=== PATIENT | female | born 1960 | race Caucasian/White ===

== ENCOUNTER 2017-01-19 09:54 | Inpatient (IN) | payer OTHER ==
[~2017-01-19] VITALS: Ht 154.9 cm; Wt 81.2 kg
[2017-01-19] MEDS ORDERED: ACETAMINOPHEN 325 MG TABLET PO PRN (13:30)
[2017-01-19] MEDS ORDERED: IBUPROFEN 400 MG TABLET PO PRN (13:30)
[2017-01-19] MEDS ORDERED: MIRALAX 17 GM POWD.PACK PO PRN (13:30)
[2017-01-19] MEDS ORDERED: LOPERAMIDE HCL 2 MG CAPSULE PO PRN ×2 (13:30)
[2017-01-19] MEDS ORDERED: CLONIDINE HCL 0.1 MG TABLET PO PRN (13:30)
[2017-01-19] MEDS ORDERED: MAG HYDROX/AL HYDROX/SIMETH 30 ML LIQUID UDC PO PRN (13:30)
[2017-01-19] MEDS ORDERED: ONDANSETRON 4 MG/2 ML VIAL IM PRN (13:30)
[2017-01-19] MEDS ORDERED: LORAZEPAM 1 MG TABLET PO PRN ×2 (13:30)
[2017-01-19] MEDS ORDERED: ONDANSETRON ODT 4 MG TAB.RAPDIS SL PRN (13:30)
[2017-01-19] MEDS ORDERED: THIAMINE HCL 200 MG/2 ML VIAL IM ONE (13:30)
[2017-01-19] MEDS ORDERED: LORAZEPAM 2 MG/1 ML VIAL IM PRN (13:30)
--- NOTE | 2017-01-19 13:35 | NUR ---
PRE ADMISSION Patient at intake, 57 year old female from [facility]. Here to detox off of alcohol. Patient is alert and oriented x4, speech is slurred. Patient ambulates with steady gait. patient bp: 133/75 heart rate: 84, t: 97.8 r: 16 o2 sat: 98% room air. Patient denies pain/discomfort. Patient reports she is allergic to Keflex. Patient denies any history of seizures. Reports first time in treatment. Reports past medical history of: hypertension and diabetes type 2. Patient was provided with education regarding all unit protocols, with good verbal understanding. Patient to be admitted to [facility]. Will monitor closely.
[2017-01-19] MEDS ORDERED: LISI1TAB13 PO (13:41)
[2017-01-19] MEDS ORDERED: sinex (13:44)
[2017-01-19] MEDS ORDERED: NICOTINE POLACRILEX 4 MG GUM-PK OF TEN BC PRN (13:45)
--- NOTE | 2017-01-19 13:45 | NUR ---
ADMISSION Patient arrived to [facility] detox, patient able to ambulate with steady gait. Body search completed by female DIVIDEND CLERK, no contraband found. Patients body assessment completed noted patient skin intact, no breakdown, bruising or discoloration noted. patient was oriented to unit and to room, educated regarding safety measures and call light teaching with good verbal understanding. Patient is alert and oriented x4, appears intoxicated noted with slurred speech, but able to be understood and make needs known. Patient reports allergies to Keflex. vital signs WNL. patient reports substance use of: 1. etoh- began drinking alcohol at the age of 30 has been drinking on/off patient reports for the past two years has been consuming 12-18 (12oz) beers of either leonard or dos xx on a daily basis. Patient reports last consumed three, 32oz of dos xx and four, 12 oz bottles of leonard. Patient reports this is her first time in detox, denies taking any recreational drugs. patient reports she was diagnosed with hypertension in the year 2004 and diabetes type 2 in the year 2005, reports she saw her primary care physician about one month ago, does not recall the doctors name, but reports the office is in [place] under the name of [facility]. Patient brought home medications, were input into [facility]. Patient denies any history of seizures. Patient reports family history of substance abuse: father "alcoholism". Patient is alert and oriented x4. pupils are equal and reactive to light, speech is slurred, face is flushed. Patients abdomen is soft and non distended, no NVD noted. Patients bowel sounds heard in all quadrants. Patients respirations are even and unlabored, lungs clear upon auscultation. Patient was seen and examined by Dr. Eastman at intake office. psychiatrist notified of new admission. safety measures in place. call light with in reach, will continue to monitor closely. safety measures in place.
[2017-01-19 13:49] VITALS: BP 133/75
[2017-01-19] MEDS ORDERED: ASPI-612 PO (13:49)
[2017-01-19 13:50] LABS: *URINE HCG, QUAL NEGATIVE (NEGATIVE)
[2017-01-19 14:05] LABS: *AMPHETAMINE, URINE NEGATIVE (NEGATIVE); *BARBITURATE, URINE NEGATIVE (NEGATIVE); *CANNABINOID, URINE NEGATIVE (NEGATIVE); *COCCAINE, URINE NEGATIVE (NEGATIVE); *OPIATE, URINE NEGATIVE (NEGATIVE); *PHENCYCLIDINE SCREEN,URINE NEGATIVE (NEGATIVE)
[2017-01-19 14:42] LABS: BASOPHILS % (AUTO) 0.4 % (0.0-2.0); BILIRUBIN,TOTAL 0.8 mg/dL (0.2-1.0); CREATININE 0.8 mg/dL (0.6-1.3); EOSINOPHILS # (AUTO) 0.1 K/uL (0.0-0.7); EOSINOPHILS % (AUTO) 1.1 % (0.0-7.0); HEMATOCRIT 44.2 % (37-47); HEMOGLOBIN 15.3 G/DL (12.0-16.0); LYMPHOCYTES % (AUTO) 39.7 % (20.5-51.5); MAGNESIUM 1.8 mg/dL (1.8-2.4); MEAN CORPUSCULAR HEMOGLOBIN 33.7 UUG (27.0-31.0); MEAN CORPUSCULAR HGB CONC 35 g/dL (32.0-37.0); MEAN CORPUSCULAR VOLUME 97.3 FL (81.0-99.0); MONOCYTES # (AUTO) 0.5 K/UL (0.1-1.30); MONOCYTES % (AUTO) 7.2 % (0.0-11.0); NEUTROPHILS % (AUTO) 51.6 % (38.5-71.5); PLATELET COUNT (AUTO) 226 K/UL (150-450); RED BLOOD CELL COUNT(AUTO) 4.53 MIL/UL (4.2-5.4); TOTAL PROTEIN, SERUM 7.3 g/dL (6.4-8.2); WHITE BLOOD COUNT (AUTO) 7.6 K/UL (4.0-11.2)
[2017-01-19 14:51] LABS: POTASSIUM 2.7 mmol/L (3.5-5.1)
[2017-01-19] MEDS ORDERED: POTASSIUM CHLORIDE 20 MEQ TAB.PRT.SR PO ONE (15:00)
--- NOTE | 2017-01-19 15:00 | NUR ---
MD COMMUNICATION relayed all lab results to Dr. Eastman, including potassium results with new orders for one time order for kdur 40 Meq one time dose for potassium supplement, unable to input orders into [employer], orders were read back and verified with MD. Will administer medication as ordered.
[2017-01-19] MEDS: METFORMIN HCL 500 MG TABLET PO SCH (17:18)
[2017-01-19 17:53] VITALS: BP 99/60
--- NOTE | 2017-01-19 19:15 | NUR ---
START OF SHIFT NOTE : Pt. is 57 years old female ,alert and oriented x4, admitted on 01/19/2017 for ETOH dependency. Vital signs were stable during shift. Patient compliant with therapeutic plan of care. Patient continues under close observation. No s/sx of withdrawal noted, last ciwa score of: 2, pt. complains of anxiety. Patient denies any SI/HI. Encouraged patient to attend group therapies/sessions to learn new coping skills to prevent relapse. Safety measures in place : bed on lowest position with side rails x2 up for safety, call light within reach. Will continue to monitor closely and offer help.
--- NOTE | 2017-01-19 19:26 | NUR ---
END OF SHIFT Patient alert and oriented x4, vital signs were stable during shift. Patient admitted today, patient reports she is very tired and would like to rest, patient in bed throughout shift. Patient compliant with therapeutic plan of care. Patient continues under close observation. No s/sx of withdrawal noted, last ciwa score of: 0. During shift patient received no PRN medications. Patient denies any SI/HI. Encouraged patient to attend group therapies/sessions to learn new coping skills to prevent relapse/ Vital signs were stable during shift. Safety measures in place. Will continue to monitor.
[2017-01-19 20:00] VITALS: BP 137/68
[2017-01-19] MEDS ORDERED: POTASSIUM CHLORIDE 10 MEQ CAPSULE.SA PO ONE (21:00)
--- NOTE | 2017-01-19 21:00 | NUR ---
PRN BENADRYL Pt. complains of increased level of sleeplessness. PRN BENADRYL given as ordered. Safety measures in place : bed on lowest position with side rails x2 up for safety, call light within reach. Will continue to monitor closely and offer help.
[2017-01-19] MEDS: diphenhydrAMINE 50 MG CAPSULE PO PRN (21:50)
--- NOTE | 2017-01-19 22:00 | NUR ---
REASSESSMENT LIZETTE Pt. is sleeping, RR=16, unlabored and even. Safety measures in place : bed on lowest position with side rails x2 up for safety, call light within reach. Will continue to monitor closely and offer help.
[2017-01-20 06:07] LABS: HEPATITIS B SURFACE AG Negative (Negative)
--- NOTE | 2017-01-20 06:36 | NUR ---
END OF SHIFT NOTE : Pt. is 57 years old female ,alert and oriented x4, admitted on 01/19/2017 for ETOH dependency. Vital signs were stable during shift. Patient compliant with therapeutic plan of care. Patient continues under close observation. No s/sx of withdrawal noted, last ciwa score of: 2, pt. complains of anxiety. Patient denies any SI/HI. Encouraged patient to attend group therapies/sessions to learn new coping skills to prevent relapse. Pt remains compliant with the treatment plan. PRN BENADRYL given during my shift. V/S remain WNL. RR=16, even and unlabored, lungs clear upon auscultation, abdomen soft and non- distended. Pt denies nausea, vomiting and diarrhea. LAST CIWA=2 at 0400 , INTAKE= 355 ml, voided x1 , slept 5 hours. Safety measures in place : bed on lowest position with side rails x2 up for safety, call light within reach. Will continue to monitor closely and offer help.
--- NOTE | 2017-01-20 07:56 | NUR ---
BEGINNING OF SHIFT Patient endorsement report received from hourly shift nurse, all pertinent information discussed. Patient with admitting Dx: ETOH dependence. Patient currently with ongoing 5 day Ativan taper as ordered, and is scheduled to begin day 1 of taper, during hourly shift was under close observation no PRN medications were administered for s/sx of withdrawal. patient was administered PRN: Benadryl for sleep, patient slept 6 hours. with last ciwa score of: 2. Fall and seizure precautions observed and in place. safety measures in place. will continue to monitor closely. Patient received in room, alert and oriented x4, educated regarding plan of care for the day and medication regimen with good verbal understanding. Will continue to monitor.
[2017-01-20 08:16] VITALS: BP 137/93
[2017-01-20] MEDS: FOLIC ACID 1 MG TABLET PO SCH (08:53)
[2017-01-20] MEDS: METFORMIN HCL 500 MG TABLET PO SCH ×2 (08:53→17:00)
[2017-01-20] MEDS: THIAMINE HCL 100 MG TABLET PO SCH (08:53)
[2017-01-20] MEDS: MULTIVITAMINS,THERAPEUTIC TABLET PO SCH (08:53)
[2017-01-20] MEDS: LORAZEPAM 1 MG TABLET PO SCH ×4 (08:53→21:42)
[2017-01-20] MEDS: NICOTINE 14 MG/24HR PATCH TD SCH (09:00)
[2017-01-20] MEDS: PATIENT MAY USE OWN MED- MD OK PO SCH (09:00)
[2017-01-20] MEDS ORDERED: TUBERCULIN,PURIF.PROT.DERIV. 5 TU/0.1 ML TEST ID ONE (09:00)
--- NOTE | 2017-01-20 09:31 | NUR ---
Therapist prompted client about group times. Client just admitted yesterday but stated she would attend groups today if she feels well.
[2017-01-20 12:24] VITALS: BP 105/60
[2017-01-20 17:18] VITALS: BP 112/75
--- NOTE | 2017-01-20 18:58 | NUR ---
END OF SHIFT Patient alert and oriented x4, vital signs were stable during shift. Patient with admitting Dx: etoh dependence, started 5 day Ativan taper this morning, patient on day 1 of taper, well tolerated, no ASE noted. Patient compliant with therapeutic plan of care. Patient continues under close observation. 0900 assessment patient presented with: mild nausea, tremors, mild sweating, and anxiety with ciwa score of: 9; 1300 assessment patient presented with: tremors, sweats, and mild anxiety with ciwa score of: 6; 1700 assessment patient presented with: tremors, sweats, and mild anxiety , and head fullness with ciwa score of: 11. Encouraged adequate PO fluid intake as tolerated. Patient reported one episode of soft formed stool during shift. During shift patient received no PRN medications. Patient denies any SI/HI. Encouraged patient to attend group therapies/sessions to learn new coping skills to prevent relapse/ Vital signs were stable during shift. Safety measures in place. Will continue to monitor.
--- NOTE | 2017-01-20 19:15 | NUR ---
START OF SHIFT NOTE : Pt. is 57 years old female ,alert and oriented x4, admitted on 01/19/2017 for ETOH dependency. Vital signs were stable during shift. Patient compliant with therapeutic plan of care. Patient continues under close observation. No s/sx of withdrawal noted, last ciwa score of: 2, pt. complains of tremors, sweats, and mild anxiety , and head fullness. Patient denies any SI/HI. Encouraged patient to attend group therapies/sessions to learn new coping skills to prevent relapse. Safety measures in place : bed on lowest position with side rails x2 up for safety, call light within reach. Will continue to monitor closely and offer help.
[2017-01-20 20:00] VITALS: BP 104/66
[2017-01-20] MEDS: diphenhydrAMINE 50 MG CAPSULE PO PRN (21:41)
--- NOTE | 2017-01-21 06:48 | NUR ---
END OF SHIFT NOTE : Pt. is 57 years old female ,alert and oriented x4, admitted on 01/19/2017 for ETOH dependency. Vital signs were stable during shift. Patient continues under close observation. No s/sx of withdrawal noted, Pt. complains of tremors, sweats, and mild anxiety , and head fullness. Patient denies any SI/HI. Encouraged patient to attend group therapies/sessions to learn new coping skills to prevent relapse. Pt remains compliant with the treatment plan. PRN BENADRYL given during my shift. V/S remain WNL. RR=16, even and unlabored, lungs clear upon auscultation, abdomen soft and non- distended. Pt denies nausea, vomiting and diarrhea. LAST CIWA=6 at 0400 , INTAKE= 1254 ml, voided x3 , slept 9 hours.Safety measures in place : bed on lowest position with side rails x2 up for safety, call light within reach. Will continue to monitor closely and offer help.
--- NOTE | 2017-01-21 07:32 | NUR ---
BEGINNING OF SHIFT Patient endorsement report received from rug sizer nurse, all pertinent information discussed. Patient with admitting Dx: ETOH dependence. Patient currently with ongoing 5 day Ativan taper as ordered, and is scheduled to begin day 2 of taper, patient was administered PRN: Benadryl for sleep, patient slept 9 hours. with last ciwa score of: 6. Fall and seizure precautions observed and in place. safety measures in place. will continue to monitor closely. Patient received in room, alert and oriented x4, educated regarding plan of care for the day and medication regimen with good verbal understanding. Will continue to monitor.
[2017-01-21 07:49] LABS: CREATININE 0.9 mg/dL (0.6-1.3); MAGNESIUM 2.1 mg/dL (1.8-2.4); POTASSIUM 3.6 mmol/L (3.5-5.1)
[2017-01-21 08:31] VITALS: BP 118/74
[2017-01-21] MEDS: PATIENT MAY USE OWN MED- MD OK PO SCH (08:33)
[2017-01-21] MEDS: FOLIC ACID 1 MG TABLET PO SCH (08:33)
[2017-01-21] MEDS: LORAZEPAM 1 MG TABLET PO SCH ×3 (08:33→21:20)
[2017-01-21] MEDS: THIAMINE HCL 100 MG TABLET PO SCH (08:33)
[2017-01-21] MEDS: METFORMIN HCL 500 MG TABLET PO SCH ×2 (08:33→17:11)
[2017-01-21] MEDS: MULTIVITAMINS,THERAPEUTIC TABLET PO SCH (08:33)
[2017-01-21] MEDS: NICOTINE 14 MG/24HR PATCH TD SCH (08:34)
[2017-01-21 13:33] VITALS: BP 138/84
[2017-01-21 16:51] VITALS: BP 118/85
--- NOTE | 2017-01-21 18:58 | NUR ---
END OF SHIFT Patient alert and oriented x4, vital signs were stable during shift. Patient with admitting Dx: etoh dependence, started 5 day Ativan taper this morning, patient on day 2 of taper, well tolerated, no ASE noted. Patient compliant with therapeutic plan of care. Patient continues under close observation. 0900 assessment patient presented with: fine tremors, barely sweating and anxiety with ciwa score of: 5; 1300 assessment patient presented with: fine tremors, barely sweating and anxiety with ciwa score of: 5; 1700 assessment patient presented with: tremors that can be felt but not seen, barely sweating and anxiety with ciwa score of: 4. Detox medication effective at reducing withdrawal symptoms. Encouraged adequate PO fluid intake as tolerated. During shift patient received no PRN medications. Patient denies any SI/HI. Encouraged patient to attend group therapies/sessions to learn new coping skills to prevent relapse/ Vital signs were stable during shift. Safety measures in place. Will continue to monitor.
--- NOTE | 2017-01-21 19:15 | NUR ---
START OF SHIFT NOTE : Pt. is 57 years old female ,alert and oriented x4, admitted on 01/19/2017 for ETOH dependency. Vital signs were stable during shift. Patient compliant with therapeutic plan of care. Patient continues under close observation. Pt. complains of mild anxiety , and head fullness. Patient denies any SI/HI. Encouraged patient to attend group therapies/sessions to learn new coping skills to prevent relapse. Safety measures in place : bed on lowest position with side rails x2 up for safety, call light within reach. Will continue to monitor closely and offer help.
[2017-01-21 20:00] VITALS: BP 141/92
[2017-01-21] MEDS: diphenhydrAMINE 50 MG CAPSULE PO PRN (21:20)
--- NOTE | 2017-01-22 06:56 | NUR ---
END OF SHIFT NOTE : Pt. is 57 years old female ,alert and oriented x4, admitted on 01/19/2017 for ETOH dependency. Vital signs were stable during shift. Patient compliant with therapeutic plan of care. Patient continues under close observation. Pt. complains of mild anxiety , and head fullness. Patient denies any SI/HI. Encouraged patient to attend group therapies/sessions to learn new coping skills to prevent relapse. Pt remains compliant with the treatment plan. PRN BENADRYL given during my shift. V/S remain WNL. RR=16, even and unlabored, lungs clear upon auscultation, abdomen soft and non- distended. Pt denies nausea, vomiting and diarrhea. LAST CIWA=3 at 0400 , SJBGKY=[id number] ml, voided x 1, slept 7 hours. Safety measures in place : bed on lowest position with side rails x2 up for safety, call light within reach. Will continue to monitor closely and offer help.
--- NOTE | 2017-01-22 07:41 | NUR ---
START OF SHIFT NOTE Received patient this morning Aox4. Patient awake and states she feels "okay." Patient continues on 5 day Ativan taper today. PRN Benadryl given per night nurse. She slept 7 hours. CIWA 3 per night nurse. Vital signs stable. Encouraged pt to attend groups and activities and increase fluid intake. Encouraged pt to notify RN if symptoms of withdrawal worsen. Will monitor closely.
[2017-01-22 08:00] VITALS: BP 143/92
[2017-01-22] MEDS: THIAMINE HCL 100 MG TABLET PO SCH (08:15)
[2017-01-22] MEDS: METFORMIN HCL 500 MG TABLET PO SCH ×2 (08:15→17:55)
[2017-01-22] MEDS: LORAZEPAM 1 MG TABLET PO SCH ×4 (08:15→20:52)
[2017-01-22] MEDS: MULTIVITAMINS,THERAPEUTIC TABLET PO SCH (08:15)
[2017-01-22] MEDS: LISINOPRIL 20 MG TABLET PO SCH (08:15)
[2017-01-22] MEDS: FOLIC ACID 1 MG TABLET PO SCH (08:15)
[2017-01-22] MEDS: NICOTINE 14 MG/24HR PATCH TD SCH (08:16)
[2017-01-22 12:00] VITALS: BP 121/74
[2017-01-22 16:00] VITALS: BP 125/79
--- NOTE | 2017-01-22 18:35 | NUR ---
END OF SHIFT NOTE Patient continued on 5 day Ativan taper and tolerating well. No PRNs given during shift as detox meds are effective. Patient attended group and activities and socialized with peers. Vital signs stable. Last CIWA 3. All needs met. All safety measures in place. Will endorse to night nurse.
--- NOTE | 2017-01-22 19:30 | NUR ---
START OF SHIFT Pt. is 57 years old female ,alert and oriented x4, admitted for ETOH dependency. Vital signs were stable during day shift. Patient compliant with therapeutic plan of care. Patient continues on 5 day Ativan taper as ordered.PMH of HTN and DM type 2. All safety measures in place, bed locked In lowest position with side rails x2 up for safety, call light within reach. Will continue to monitor closely.
[2017-01-22 20:00] VITALS: BP 121/76
[2017-01-22] MEDS: diphenhydrAMINE 50 MG CAPSULE PO PRN (21:56)
--- NOTE | 2017-01-23 | NUR ---
PT REFUSED V/S,COWS/CIWA DEFERRED PT RESTING IN BED WITH EYES CLOSED,FAST ASLEEP.REQUESTED NOT TO WOKEN UP FOR V/S IF SLEEPING.NO S/S OF DISTRESS NOTED,WILL CONTINUE TO MONITOR.
--- NOTE | 2017-01-23 06:51 | NUR ---
END OF SHIFT Pt. is 57 years old female ,alert and oriented x4, admitted for ETOH dependency. Vital signs were stable during day shift. Patient compliant with therapeutic plan of care. Patient continues on 5 day Ativan taper as ordered.PMH of HTN and DM type 2.Last ciwa=3.PRN Benadryl given to help sleep with good effect,pt slept 7 hrs,fluid intake was 1200 mls,voided x 2. All safety measures in place : bed locked on lowest position with side rails x2 up for safety, call light within reach. Will continue to monitor closely.
[2017-01-23 08:00] VITALS: BP 142/85
--- NOTE | 2017-01-23 08:00 | NUR ---
START OF SHIFT NOTE Received patient this morning Aox4. Patient awake and states shes feeling good, but is experiencing hip pain 5/10. patient is refusing any pain medication. Patient continues on 5 day Ativan taper. PRN Benadryl given per night nurse. She slept 7 hours. CIWA 2 this morning at 0800. Vital signs stable. Encouraged pt to attend groups and activities and increase fluid intake. Encouraged pt to notify RN if symptoms of withdrawal worsen. Will monitor closely.
[2017-01-23] MEDS: THIAMINE HCL 100 MG TABLET PO SCH (08:23)
[2017-01-23] MEDS: LORAZEPAM 1 MG TABLET PO SCH ×3 (08:23→21:28)
[2017-01-23] MEDS: MULTIVITAMINS,THERAPEUTIC TABLET PO SCH (08:23)
[2017-01-23] MEDS: FOLIC ACID 1 MG TABLET PO SCH (08:23)
[2017-01-23] MEDS: METFORMIN HCL 500 MG TABLET PO SCH ×2 (08:23→17:18)
[2017-01-23] MEDS: NICOTINE 14 MG/24HR PATCH TD SCH (08:24)
[2017-01-23] MEDS: LISINOPRIL 20 MG TABLET PO SCH (08:24)
[2017-01-23] MEDS ORDERED: AMLODIPINE 5 MG TABLET PO SCH (09:00)
[2017-01-23 12:00] VITALS: BP 125/85
[2017-01-23] MEDS ORDERED: NAPHAZOLINE/PHENIR OPHT DROP 15 ML BOTTLE EACHEYE PRN (15:45)
[2017-01-23 16:00] VITALS: BP 131/81
--- NOTE | 2017-01-23 18:27 | NUR ---
START OF SHIFT NOTE: Patient endorsed to day shift nurse in stable condition. Report given. Patient is a 57 year old female admitted to [facility] for Alcohol dependence on 01/19/2017, continue 5 Day Ativan since 01/20/2017 which tolerated well without ASE. Patient reports Allergy to Keflex. Patient is on Full Code, Regular Diet. Patient is on Fall and Seizures Precautions. PMH: Anxiety, Depression, HTN, DM II, Tobacco dependence, and Substance abuse. Upon endorsement, patient is alert and oriented x4, with steady gait. Speech is soft and clear. VS WNL. Respirations unlabored and even. Lungs Sounds are clear. Patient denies SOB and chest pain. Abdomen is soft and non-tender. Bowel Sounds active in all four quadrants. Skin is intact, warm and dry to touch. CIWA 5. Patient presented with anxiety, agitation, nervousness, tremors that can be felt, barely sweating, restless legs, and fatigue. Patient denies SI/HI. Encouraged fluids as tolerated. All needs met. Safety measures on place. Call light within reach, bed in lowest position and locked, padded rails up bilaterally. Will continue to monitor closely. Addendum: 01/24/17 at 0233 by LAKSHMI XIE RN Patient endorsed by day shift nurse in stable condition. Report received.
--- NOTE | 2017-01-23 18:27 | NUR ---
END OF SHIFT NOTE Patient continued on 5 day Ativan taper and tolerating well. No PRNs given during shift as detox meds are effective. patient reported dry eyes and was ordered eye drops. Patient attended group and activities and socialized with peers. Vital signs stable. Last CIWA 2. All needs met. All safety measures in place. Will endorse to night nurse.
[2017-01-23 20:00] VITALS: BP 143/88
[2017-01-23] MEDS: diphenhydrAMINE 50 MG CAPSULE PO PRN (21:33)
--- NOTE | 2017-01-23 21:33 | NUR ---
PRN BENADRYL 50 MG 1 CAP PO ADMINISTRATION. Patient c/o insomnia and asked aid. PRN Benadryl 50 mg 1 cap PO administrated for insomnia with full glass of water as ordered. Patient tolerated well. All needs met. Safety measures on place. Call light within reach, bed in lowest position and locked, padded rails up bilaterally rails up bilaterally. Will continue to monitor closely.
--- NOTE | 2017-01-23 22:33 | NUR ---
RE-ASSESSMENT Patient is sleeping. Respirations even and unlabored. RR:14. PRN Benadryl PO was effective. All needs met. Safety measures on place. Call light within reach, bed in lowest position and locked, padded rails up bilaterally rails up bilaterally. Will continue to monitor closely.
[2017-01-24] VITALS: BP 118/79
[2017-01-24 04:00] VITALS: BP 119/64
--- NOTE | 2017-01-24 06:54 | NUR ---
END OF SHIFT NOTE : Patient endorsed to day shift nurse in stable condition. Report given. Patient is a 57 year old female admitted to [facility] for Alcohol dependence on 01/19/2017, continue 5 Day Ativan since 01/20/2017 which tolerated well without ASE. Patient reports Allergy to Keflex. Patient is Full Code, Regular Diet. Patient is Fall and Seizures Precautions. Patients denies Seizures Hx r/t withdrawal from substances. Pt remains compliant with the treatment plan, medications, and diet regime. Last VS at 0400: T: 98.2; BP: 119/64; HR: 62; RR: 16; O2 SAT: 99%. Pain level: "0/10". Respirations unlabored and even. Patient denies SOB, cough and chest pain. Last CIWA 4 at 0400. Last nightclub manager patient presented with the following symptoms of withdrawal: anxiety, agitation, nervousness, tremors that can be felt, diaphoresis, restless legs, and fatigue. Patient denies any SI/HI. PRN Benadryl PO administrated for insomnia was effective. Patient slept 6 hours 15 minutes, intake 1,160 ml, voided x 4. Encouraged patient to attend group therapies/sessions to learn new coping skills to prevent relapse. All needs met. Safety measures on place. Call light within reach, bed in lowest position and locked, padded rails up bilaterally rails up bilaterally.
--- NOTE | 2017-01-24 07:53 | NUR ---
BEGINNING OF SHIFT Patient endorsement report received from shift commander nurse, all pertinent information discussed. Patient with admitting Dx: ETOH dependence. Patient currently with ongoing 5 day Ativan taper as ordered, and is scheduled to begin day 4 of taper, patient was administered PRN: Benadryl for sleep, patient slept 6 hours. with last ciwa score of: 4. Fall and seizure precautions observed and in place. safety measures in place. will continue to monitor closely. Patient received in room, alert and oriented x4, educated regarding plan of care for the day and medication regimen with good verbal understanding. Will continue to monitor.
[2017-01-24 08:42] VITALS: BP 156/98
[2017-01-24] MEDS: FOLIC ACID 1 MG TABLET PO SCH (08:48)
[2017-01-24] MEDS: THIAMINE HCL 100 MG TABLET PO SCH (08:48)
[2017-01-24] MEDS: MULTIVITAMINS,THERAPEUTIC TABLET PO SCH (08:48)
[2017-01-24] MEDS: AMLODIPINE 5 MG TABLET PO SCH (08:48)
[2017-01-24] MEDS: LISINOPRIL 20 MG TABLET PO SCH (08:48)
[2017-01-24] MEDS: METFORMIN HCL 500 MG TABLET PO SCH ×2 (08:48→17:06)
[2017-01-24] MEDS: NICOTINE 14 MG/24HR PATCH TD SCH (08:49)
[2017-01-24] MEDS ORDERED: LORAZEPAM 1 MG TABLET PO SCH ×2 (09:00)
[2017-01-24 13:00] VITALS: BP 144/80
[2017-01-24] MEDS ORDERED: DIPH50CA37 PO (14:11)
[2017-01-24] MEDS ORDERED: NICO4GUM38 BC (14:11)
[2017-01-24] MEDS ORDERED: IBUP-1953 PO (14:11)
[2017-01-24] MEDS ORDERED: LISI-603 PO (14:11)
[2017-01-24] MEDS ORDERED: AMLO5TAB2 PO (14:11)
[2017-01-24 17:38] VITALS: BP 146/79
--- NOTE | 2017-01-24 18:51 | NUR ---
START OF SHIFT NOTE: Patient endorsed to day shift nurse in stable condition. Report given. Patient is a 57 year old female admitted to [facility] for Alcohol dependence on 01/19/2017, completed 5 Day Ativan which tolerated well without ASE. Patient reports Allergy to Keflex. Patient is on Full Code, Regular Diet. Patient is on Fall and Seizures Precautions. PMH: Anxiety, Depression, HTN, DM II, Tobacco dependence, and Substance abuse. Upon endorsement, patient is alert and oriented x4, with steady gait. Speech is soft and clear. VS WNL. Respirations unlabored and even. Lungs Sounds are clear. Patient denies SOB and chest pain. Abdomen is soft and non-tender. Bowel Sounds active in all four quadrants. Skin is intact, warm and dry to touch. CIWA 3. Patient is anxious and agitated, c/o mild headache "3/10". Patient denies SI/HI. Encouraged fluids as tolerated. Encouraged patient to attend group therapies/sessions to learn new coping skills to prevent relapse. Patient will discharging tomorrow, 01/25/2017. UDS Test collected and sent to lab. All needs met. Safety measures on place. Call light within reach, bed in lowest position and locked, padded rails up bilaterally rails up bilaterally.
--- NOTE | 2017-01-24 18:51 | NUR ---
END OF SHIFT Patient alert and oriented x4, vital signs were stable during shift. Patient with admitting Dx: etoh dependence, continues on 5 day Ativan taper as ordered, and received last dose of detox taper this morning, well tolerated, no ASE noted. Patient is scheduled for discharge tomorrow, noted self motivated towards sobriety. Patient compliant with therapeutic plan of care. Patient continues under close observation. 0900 assessment patient presented with: tremors that can be felt but not seen, and mild anxiety with ciwa score of: 3; 1300 assessment patient presented with: mild anxiety with ciwa score of: 1; 1700 assessment patient presented with: mild anxiety with ciwa score of : 1. Encouraged adequate PO fluid intake as tolerated. During shift patient received no PRN medications. Patient denies any SI/HI. Encouraged patient to attend group therapies/sessions to learn new coping skills to prevent relapse/ Vital signs were stable during shift. Safety measures in place. Will continue to monitor.
[2017-01-24 20:00] VITALS: BP 146/93
[2017-01-24] MEDS: diphenhydrAMINE 50 MG CAPSULE PO PRN (21:38)
[2017-01-24 22:08] LABS: *AMPHETAMINE, URINE NEGATIVE (NEGATIVE); *BARBITURATE, URINE NEGATIVE (NEGATIVE); *CANNABINOID, URINE NEGATIVE (NEGATIVE); *COCCAINE, URINE NEGATIVE (NEGATIVE); *OPIATE, URINE NEGATIVE (NEGATIVE); *PHENCYCLIDINE SCREEN,URINE NEGATIVE (NEGATIVE)
--- NOTE | 2017-01-25 | NUR ---
VS REFUSED AND CIWA DEFERRED Patient refused to be woken up for 0000 VS. CIWA deferred d/t patient sleeping to assess while patient is awake. Safety measures on place by hospital policy: Call light within reach; Bed in lowest position and locked; side rails up x2. Will continue to monitor. Addendum: 01/25/17 at 0119 by LAKSHMI XIE RN PATIENT AGREED THE CHECK HER VS AT 0100.
[2017-01-25 01:00] VITALS: BP 125/78
[2017-01-25 04:00] VITALS: BP 127/75
--- NOTE | 2017-01-25 06:51 | NUR ---
END OF SHIFT NOTE : Patient endorsed to day shift nurse in stable condition. Report given. Patient is a 57 year old female admitted to [facility] for Alcohol dependence on 01/19/2017, continue 5 Day Ativan since 01/20/2017 which tolerated well without ASE. Patient reports Allergy to Keflex. Patient is Full Code, Regular Diet. Patient is on Fall and Seizures Precautions. Patients denies Seizures Hx r/t withdrawal from substances. Pt remains compliant with the treatment plan, medications, and diet regime. Last VS at 0400: T: 97.6; BP: 127/75; HR: 62; RR: 16; O2 SAT: 95%. Pain level: "0/10". Respirations unlabored and even. Patient denies SOB, cough and chest pain. Last CIWA 1 at 0400. Patient denies any SI/HI. PRN Benadryl PO administrated for insomnia was effective. Patient slept 7 hours, intake 1,646 ml, voided x 4. Patient scheduled discharging today, on 01/25/2017. UDS test results placed in the chart. Encouraged patient to attend group therapies/sessions to learn new coping skills to prevent relapse. All needs met. Safety measures on place. Call light within reach, bed in lowest position and locked, padded rails up bilaterally rails up bilaterally.
--- NOTE | 2017-01-25 07:20 | NUR ---
start of shift note: received pt from shift superintendent nurse, pt is in stable condition no s/s of pain or discomfort. pt is admitted to [facility] for [facility] withdrawal/dependence. pts last ciwa 1. pt slept for 7 hrs. pt is set to discharge today will assist pt in discharge.
[2017-01-25 08:26] VITALS: BP 131/68
[2017-01-25] MEDS: LISINOPRIL 20 MG TABLET PO SCH (08:26)
[2017-01-25] MEDS: FOLIC ACID 1 MG TABLET PO SCH (08:26)
[2017-01-25] MEDS: THIAMINE HCL 100 MG TABLET PO SCH (08:26)
[2017-01-25] MEDS: MULTIVITAMINS,THERAPEUTIC TABLET PO SCH (08:26)
[2017-01-25] MEDS: AMLODIPINE 5 MG TABLET PO SCH (08:26)
[2017-01-25] MEDS: METFORMIN HCL 500 MG TABLET PO SCH (08:26)
[2017-01-25] MEDS: NICOTINE 14 MG/24HR PATCH TD SCH (08:30)
--- NOTE | 2017-01-25 09:48 | NUR ---
discharge note: pt left unit in stable condition, pt teaching administered and pt verbalized understanding, pt with withdrawal symptoms at this time. pt's personal belongings were returned. pt will be transferred to able to change via private car
== END 2017-01-25 09:48 | disposition other institution (70) | DRG 895 ==
LOC: SRC 12:37
PROVIDERS: ADMIT Internal Medicine; ATTEND Internal Medicine
PROC: HZ2ZZZZ Detoxification Services for Substance Abuse Treatment (ICD-10-PCS; principal; 2017-01-19)
PROC: HZ41ZZZ Group Counseling for Substance Abuse Treatment, Behavioral (ICD-10-PCS; 2017-01-21)
PROC: HZ31ZZZ Individual Counseling for Substance Abuse Treatment, Behavioral (ICD-10-PCS; 2017-01-22)
DX: F10.230 Alcohol dependence with withdrawal, uncomplicated (principal); E87.8 Other disorders of electrolyte and fluid balance, not elsewhere classified; I10 Essential (primary) hypertension; E11.9 Type 2 diabetes mellitus without complications; F10.220 Alcohol dependence with intoxication, uncomplicated; F11.21 Opioid dependence, in remission; Y90.9 Presence of alcohol in blood, level not specified; F17.210 Nicotine dependence, cigarettes, uncomplicated; G51.0 Bell's palsy; F14.21 Cocaine dependence, in remission; F15.21 Other stimulant dependence, in remission; E86.0 Dehydration; E87.6 Hypokalemia; R79.89 Other specified abnormal findings of blood chemistry; Z81.1 Family history of alcohol abuse and dependence; Z82.49 Family history of ischemic heart disease and other diseases of the circulatory system
CPT/HCPCS: 36415; 70030-TC; 80307; 83690; 83735; 84703; 85025; 86580; 86592; 86705; 86803; 87340; 87806; G0480; Q0163